=== PATIENT | female | born 1965 | race Two or more races ===

== ENCOUNTER → 2023-07-15 07:23 | Outpatient (CLI) | payer OTHER ==
[2023-07-15 07:57] LABS: PH,URINE 6.5 (5.0-8.0); URINE APPEARANCE Clear; URINE BILIRRUBIN Negative (NEGATIVE); URINE BLOOD Negative; URINE COLOR Yellow; URINE GLUCOSE Negative (NEGATIVE); URINE LEUKOCYTE Negative; URINE NITRATE Negative; URINE PROTEIN Negative (NEGATIVE); URINE UROBILINOGEN 0.2 E.U./dl
[2023-07-15 08:02] LABS: URINE BACTERIA 22.6 uL (0.0-1933); URINE EPITHELIAL CELLS 5.7 uL (0.0-38.8); URINE RBC 7.1 uL (0.0-20.8); URINE WBC 3.2 uL (0.0-23.2)
[2023-07-15 08:07] LABS: HEMATOCRIT 40.5 % (36.0-45.00); HEMOGLOBIN 13.9 g/dL (12.0-15.00); MEAN CELL VOLUME 92.4 fL (80.00-100.00); MEAN CORPUSCULAR HEMOGLOBIN 31.8 pg (27.00-32.0); MEAN CORPUSCULAR HGB CONC 34.4 g/dl (32.0-36.0); PLATELET COUNT 279 K/uL (150-450); RED BLOOD COUNT 4.38 M/uL (4.00-6.00); RED CELL DISTRIBUTION WIDTH 13.6 % (11.5-14.5)
[2023-07-15 08:29] LABS: ALBUMIN 4.1 gm/dL (3.4-5.0); BILIRUBIN TOTAL 0.36 mg/dL (0.3-1.2); CALCIUM 9.2 mg/dL (8.5-10.1); CREATININE SERUM 0.83 mg/dL (0.55-1.02); GFR 70.86; GLOBULINA 3.3 G/DL (2.4-3.5); POTASSIUM 4.76 mEq/L (3.5-5.1); TOTAL PROTEIN 7.4 gm/dL (6.4-8.2)
[2023-07-15 08:50] LABS: T4 TOTAL 9.42 UG/DL (4.8-13.9); TSH 2.68 uIU/mL (0.358-3.74)
[2023-07-15 11:37] LABS: T3 TOTAL 0.954 ng/ml (0.846-2.02); VITAMIN D3 25 HYDROXY 43.05 ng/ml (30-120)
== END | disposition home or self-care (01) ==
LOC: LAB 07:23
PROVIDERS: ATTEND Internal Medicine
DX: E11.9 Type 2 diabetes mellitus without complications (principal); I10 Essential (primary) hypertension; E78.00 Pure hypercholesterolemia, unspecified; E03.9 Hypothyroidism, unspecified; N39.0 Urinary tract infection, site not specified; E55.9 Vitamin D deficiency, unspecified

== ENCOUNTER → 2023-07-15 | Outpatient (CLI) | payer OTHER | END | disposition home or self-care (01) | LOC: MAMO-SONO 08:07 | PROVIDERS: ATTEND Internal Medicine | DX: N63.0 Unspecified lump in unspecified breast (principal); N63.11 Unspecified lump in the right breast, upper outer quadrant; N63.42 Unspecified lump in left breast, subareolar; N63.12 Unspecified lump in the right breast, upper inner quadrant ==

== ENCOUNTER 2023-07-22 12:42 | Outpatient (CLI) | payer OTHER | END 2023-07-22 12:44 | disposition home or self-care (01) | LOC: NUCLEAR 12:42 | PROVIDERS: ATTEND Internal Medicine | DX: M81.0 Age-related osteoporosis without current pathological fracture (principal) ==

== ENCOUNTER 2024-01-01 06:31 | Outpatient (CLI) | payer OTHER ==
[2024-01-01 08:04] LABS: CALCIUM 9.4 mg/dL (8.5-10.1); CHOL HDL RATIO 3.6 (0-5.0); CREATININE SERUM 0.76 mg/dL (0.55-1.02); GFR 78.44; TSH 4.8 uIU/mL (0.358-3.74)
== END 2024-01-01 06:36 | disposition home or self-care (01) ==
LOC: LAB 06:31
PROVIDERS: ATTEND Internal Medicine
DX: E03.9 Hypothyroidism, unspecified (principal); E78.00 Pure hypercholesterolemia, unspecified; I10 Essential (primary) hypertension

== ENCOUNTER 2024-01-01 07:26 | Outpatient (CLI) | payer OTHER | END 2024-01-01 09:10 | disposition home or self-care (01) | LOC: SONOGRAMA 07:26 | PROVIDERS: ATTEND Internal Medicine | DX: N63.20 Unspecified lump in the left breast, unspecified quadrant (principal); N63.11 Unspecified lump in the right breast, upper outer quadrant ==

== ENCOUNTER 2024-02-22 07:03 | Outpatient (CLI) | payer OTHER ==
[2024-02-22 09:18] LABS: CALCIUM 9.2 mg/dL (8.5-10.1); CHOL HDL RATIO 3.6 (0-5.0); CREATININE SERUM 0.69 mg/dL (0.55-1.02); GFR 87.38; POTASSIUM 4.15 mEq/L (3.5-5.1)
[2024-02-22 09:29] LABS: ob NEGATIVE (NEGATIVE)
== END 2024-02-22 14:16 | disposition home or self-care (01) ==
LOC: LAB 07:03
DX: E11.8 Type 2 diabetes mellitus with unspecified complications (principal); D68.8 Other specified coagulation defects; I11.9 Hypertensive heart disease without heart failure; N39.0 Urinary tract infection, site not specified; Z12.12 Encounter for screening for malignant neoplasm of rectum

== ENCOUNTER 2024-02-22 07:20 | Outpatient (CLI) | payer OTHER | END 2024-02-22 07:28 | disposition home or self-care (01) | LOC: RAD 07:20 | DX: M25.531 Pain in right wrist (principal) ==

== ENCOUNTER 2024-03-09 08:21 | Outpatient (CLI) | payer OTHER | END 2024-03-09 08:26 | disposition home or self-care (01) | LOC: SONOGRAMA 08:21 | PROVIDERS: ATTEND Obstetrics & Gynecology | DX: R10.2 Pelvic and perineal pain (principal) ==

== ENCOUNTER 2024-04-27 07:09 | Emergency (ER) | payer OTHER ==
[~2024-04-27] VITALS: Ht 165.1 cm; Wt 70.8 kg
[2024-04-27] MEDS ORDERED: SYNTHROID50 MCG PO (07:28)
[2024-04-27 09:00] LABS: URINE APPEARANCE Clear; URINE BILIRRUBIN Negative (NEGATIVE); URINE BLOOD Negative; URINE COLOR Yellow; URINE GLUCOSE Negative (NEGATIVE); URINE KETONE Negative (NEGATIVE); URINE LEUKOCYTE Negative; URINE NITRATE Negative; URINE PROTEIN Negative (NEGATIVE); URINE UROBILINOGEN 0.2 E.U./dl
[2024-04-27 09:05] LABS: URINE RBC 8.7 uL (0.0-20.8)
[2024-04-27 09:15] LABS: HEMATOCRIT 44.3 % (36.0-45.00); HEMOGLOBIN 15.5 g/dL (12.0-15.00); MEAN CELL VOLUME 90.4 fL (80.00-100.00); MEAN CORPUSCULAR HEMOGLOBIN 31.6 pg (27.00-32.0); MEAN CORPUSCULAR HGB CONC 34.9 g/dl (32.0-36.0); PLATELET COUNT 339 K/uL (150-450)
[2024-04-27 09:32] LABS: URINE BACTERIA 3.7 uL (0.0-1933); URINE EPITHELIAL CELLS 0.6 uL (0.0-38.8); URINE WBC 0.3 uL (0.0-23.2)
[2024-04-27 09:34] LABS: ALBUMIN 4.7 gm/dL (3.4-5.0); BILIRUBIN TOTAL 0.48 mg/dL (0.3-1.2); CALCIUM 9.8 mg/dL (8.5-10.1); CREATININE SERUM 0.77 mg/dL (0.55-1.02); GFR 76.99; GLOBULINA 4.4 G/DL (2.4-3.5); POTASSIUM 4.22 mEq/L (3.5-5.1); TOTAL PROTEIN 9.1 gm/dL (6.4-8.2)
== END 2024-04-27 15:56 | disposition home or self-care (01) ==
LOC: ER 07:11
PROVIDERS: Emergency Medicine
DX: R10.12 Left upper quadrant pain (principal)

== ENCOUNTER 2024-08-11 06:11 | Outpatient (CLI) | payer OTHER ==
[~2024-08-11 06:11] MED LIST: SYNTHROID50 MCG PO
[2024-08-11 08:00] LABS: HEMATOCRIT 43.3 % (36.0-45.00); HEMOGLOBIN 14.6 g/dL (12.0-15.00); MEAN CELL VOLUME 92.3 fL (80.00-100.00); MEAN CORPUSCULAR HEMOGLOBIN 31.1 pg (27.00-32.0); MEAN CORPUSCULAR HGB CONC 33.7 g/dl (32.0-36.0); PLATELET COUNT 256 K/uL (150-450); RED BLOOD COUNT 4.69 M/uL (4.00-6.00); RED CELL DISTRIBUTION WIDTH 13.2 % (11.5-14.5)
[2024-08-11 08:35] LABS: ALBUMIN 4.3 gm/dL (3.4-5.0); BILIRUBIN TOTAL 0.59 mg/dL (0.3-1.2); CALCIUM 9.6 mg/dL (8.5-10.1); CHOL HDL RATIO 3.1 (0-5.0); CREATININE SERUM 0.82 mg/dL (0.55-1.02); GFR 71.6; GLOBULINA 3.3 G/DL (2.4-3.5); POTASSIUM 4.29 mEq/L (3.5-5.1); T4 TOTAL 9.83 UG/DL (4.8-13.9); TOTAL PROTEIN 7.6 gm/dL (6.4-8.2); TSH 1.32 uIU/mL (0.358-3.74)
== END 2024-08-11 06:15 | disposition home or self-care (01) ==
LOC: LAB 06:11
DX: E03.9 Hypothyroidism, unspecified (principal); E78.00 Pure hypercholesterolemia, unspecified; D64.9 Anemia, unspecified; I10 Essential (primary) hypertension

== ENCOUNTER 2024-11-23 08:14 | Outpatient (CLI) | payer OTHER | END 2024-11-23 08:16 | disposition home or self-care (01) | LOC: MAMO-SONO 08:14 | PROVIDERS: ATTEND Internal Medicine | DX: N63 Unspecified lump in breast (principal); N63.11 Unspecified lump in the right breast, upper outer quadrant; N63.42 Unspecified lump in left breast, subareolar ==

== ENCOUNTER 2024-12-26 06:18 | Outpatient (CLI) | payer OTHER ==
[2024-12-26 07:23] LABS: URINE APPEARANCE Clear; URINE BILIRRUBIN Negative (NEGATIVE); URINE BLOOD Negative; URINE COLOR Yellow; URINE GLUCOSE Negative (NEGATIVE); URINE KETONE Negative (NEGATIVE); URINE LEUKOCYTE Negative; URINE NITRATE Negative; URINE PROTEIN Negative (NEGATIVE); URINE UROBILINOGEN 0.2 E.U./dl
[2024-12-26 07:25] LABS: URINE BACTERIA 22.7 uL (0.0-1933); URINE EPITHELIAL CELLS 1.8 uL (0.0-38.8); URINE RBC 4.9 uL (0.0-20.8); URINE WBC 4.0 uL (0.0-23.2)
[2024-12-26 07:28] LABS: URINE CAST 0.14 uL (0.0-1.40)
[2024-12-26 07:29] LABS: BASO % 0.9 % (0.1-1.2); EOS # 0.29 (0.04-0.54); EOS % 5.4 % (0.7-7.0); LYMPH # 2.14 (1.18-3.74); LYMPH % 39.8 % (19.3-53.1); MEAN PLATELET VOLUME 10.20 fl (9.4-12.4); MONO # 0.39 (0.24-0.82); MONO % 7.2 % (4.7-12.5); NEUT # 2.50 (1.56-6.13); NEUT % 46.5 % (34.0-71.1); RED CELL DISTRIBUTION WIDTH 12.7 % (11.6-14.4)
[2024-12-26 08:34] LABS: BUN CREA RATIO 24.0 (7.0-25.0); CREATININE SERUM 0.67 mg/dL (0.55-1.02); GFR 90.4; GLUCOSE FASTING 86.0 mg/dL (65-100); OSMOLALITY SERUM 285.0 MOSM/KG (275-295); T4 TOTAL 9.35 UG/DL (4.8-13.9); TSH 2.5 uIU/mL (0.358-3.74)
== END 2024-12-26 06:26 | disposition home or self-care (01) ==
LOC: LAB 06:18
PROVIDERS: ATTEND Internal Medicine
DX: I10 Essential (primary) hypertension (principal); E11.9 Type 2 diabetes mellitus without complications; N39.0 Urinary tract infection, site not specified; D64.9 Anemia, unspecified; E03.9 Hypothyroidism, unspecified

== ENCOUNTER 2024-12-29 06:11 | Outpatient (CLI) | payer OTHER ==
[2024-12-29 08:23] LABS: ob POSITIVE (NEGATIVE)
== END 2024-12-29 06:15 | disposition home or self-care (01) ==
LOC: LAB 06:11
PROVIDERS: ATTEND Internal Medicine
DX: I10 Essential (primary) hypertension (principal); E11.9 Type 2 diabetes mellitus without complications; N39.0 Urinary tract infection, site not specified; D64.9 Anemia, unspecified; E03.9 Hypothyroidism, unspecified